=== PATIENT | male | born 1940 | race Caucasian/White ===

== ENCOUNTER 2018-08-09 22:10 | Emergency (ER) | payer BC ==
[2018-08-09] MEDS ORDERED: NS 0.9% 1000 ML* 1,000 ML IV ONE (22:34)
--- NOTE | 2018-08-09 22:41 | ED ---
Syncope/Near Syncope - HPI Summary HPI Summary: Patient is a 77 y/o M presenting to ED via ambulance with complaints of chest pain, syncope, dizziness, and diaphoresis. Patient was at a restaurant tonight when he suddenly began to feel dizzy and sweat profusely at around 0, per family members. He put his head down on the table at this point. No LOC is reported, family members note that patient became confused and had difficulty communicating. EMS was called at this time, while in ambulance patient became more coherent. In the room, he states he also experienced some chest pain upon arrival to the ED which he rated 4/10 but notes that this pain has since resolved. He currently states that he feels, "fine". 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 Patient is on Eliquis, Losartan, two BP meds, one HLD med (cannot recall the names of these meds). PMHx of asthma is also reported. Upholsterer Inside is Dr. Garcia. Patient notes that he had four glasses of wine today , states he typically does not drink. In room, BP is 99/46, pulse 64, o2 92. On triage, pain is denied, nothing is noted to aggravate/alleviate Sx. Home medications and allergies are reviewed. - History Of Current Complaint Chief Complaint: EDDiabeticProb Hx Obtained From: Patient, Family/Administrative Aide Onset/Duration: Sudden Onset, Lasting Minutes, Resolved Timing: Hours - onset 2129 Context: Witnessed Activity At Onset: At Rest - sitting at table Associated Head Trauma: No Aggravating Factor(s): Nothing Alleviating Factor(s): Nothing Associated Signs And Symptoms: Chest Pain, Other - endorses syncope, dizziness, and diaphoresis, confused and had difficulty communicating, denies LOC - Allergies/Home Medications Allergies/Adverse Reactions: Allergies Allergy/AdvReac Type Severity Reaction Status Date / Time MS Codeine [Codeine] Allergy Hives Verified 08/09/18 22:26 PMH/Surg Hx/FS Hx/Imm Hx Endocrine/Hematology History: Denies: Hx Diabetes Cardiovascular History: Reports: Hx Angina, Hx Hypercholesterolemia, Hx Hypertension, Other Cardiovascular Problems/Disorders - cad ascending aorta with valve leakage, stable per pt Denies: Hx Coronary Artery Disease, Hx Myocardial Infarction, Hx Pacemaker/ ICD, Hx Valvular Heart Disease Respiratory History: Reports: Hx Asthma, Hx Sleep Apnea - evaluation for 02/2014 , Other Respiratory Problems/Disorders - hx sob GI History: Reports: Hx Gastroesophageal Reflux Disease History: Reports: Hx Benign Prostatic Hyperplasia - w/o obstruction, Other Problems/Disorders - prostatitis Denies: Hx Renal Disease Sensory History: Denies: Hx Hearing Aid Neurological History: Reports: Other Neuro Impairments/Disorders - 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 Psychiatric History: Denies: Hx Panic Disorder - Surgical History Surgery Procedure, Year, and Place: TONSILS,CYSTS,CATARACTS BILATERAL EYES Infectious Disease History: No Infectious Disease History: Denies: Traveled Outside the [place] in Last 30 Days - Family History Known Family History: Negative: Blood Disorder - Social History Alcohol Use: Occasionally Alcohol Amount: 4 glasses of wine this date Substance Use Type: Reports: None Smoking Status (MU): Never Smoked Tobacco Have You Smoked in the Last Year: No Review of Systems Positive: Skin Diaphoresis Positive: Chest Pain Neurological: Other - POSITIVE - DIZZINESS, CONFUSION, DIFFICULTY COMMUNICATING Positive: Syncope - no LOC All Other Systems Reviewed And Are Negative: Yes Physical Exam - Summary Physical Exam Summary: VITAL SIGNS: Reviewed. GENERAL: Patient is a well-developed and nourished male who is lying comfortable in the stretcher. Patient is not in any acute respiratory distress. HEAD AND FACE: No signs of trauma. No ecchymosis, hematomas or skull depressions. No sinus tenderness. EYES: PERRLA, EOMI x 2, No injected conjunctiva, no nystagmus. EARS: Hearing grossly intact. Ear canals and tympanic membranes are within normal limits. MOUTH: Oropharynx within normal limits. NECK: Supple, trachea is midline, no adenopathy, no JVD, no carotid bruit, no c- spine tenderness, neck with full ROM. CHEST: Symmetric, no tenderness at palpation LUNGS: Clear to auscultation bilaterally. No wheezing or crackles. CVS: Regular rate and rhythm, S1 and S2 present, no murmurs or gallops appreciated. ABDOMEN: Soft, non-tender. Abdominal distention. No rebound no guarding, and no masses palpated. Bowel sounds are normal. EXTREMITIES: FROM in all major joints, no edema, no cyanosis or clubbing. NEURO: Alert and oriented x 3. No acute neurological deficits. Speech is normal and follows commands. SKIN: Dry and warm Triage Information Reviewed: Yes Vital Signs On Initial Exam: Initial Vitals Temp Pulse Resp BP Pulse Ox 97.4 F 68 16 105/56 96 08/09/18 22:14 08/09/18 22:14 08/09/18 22:14 08/09/18 22:14 08/09/18 22:14 Vital Signs Reviewed: Yes Diagnostics - Vital Signs Vital Signs Temp Pulse Resp BP Pulse Ox 08/09/18 22:19 65 16 99/46 95 08/09/18 22:18 65 20 94 08/09/18 22:14 97.4 F 68 16 105/56 96 - Laboratory Result Diagrams: 08/09/18 22:56 08/09/18 22:56 Lab Statement: Any lab studies that have been ordered have been reviewed, and results considered in the medical decision making process. - EKG 2215 Cardiac Rate: NL EKG Rhythm: Sinus Rhythm - rate of 65 bpm Summary of EKG Findings: EKG showed sinus rhythm with rate of 65 BPM, 1st degree AV block, left axis deviation, RBBB. Re-Evaluation - Re-Evaluation First Eval Re-Evaluation Time: 00:31 Change: Improved Comment: Patient states he feels better. He ambulated around ED with no complications. Patient has a loop recorder in place, if any arrhythmias occurred patient would have gotten a call from loop recorder [employer]. Results of labs and tests were discussed, patient is agreeable with discharge to home. Course/Dx Course Of Treatment: Patient is a 77 y/o M presenting to ED via ambulance with complaints of chest pain, syncope, dizziness, and diaphoresis. Patient was at a restaurant tonight when he suddenly began to feel dizzy and sweat profusely at around 2130, per family members. He put his head down on the table at this point. No LOC is reported, family members note that patient became confused and had difficulty communicating. EMS was called at this time, while in ambulance patient became more coherent. In the room, he states he also experienced some chest pain upon arrival to the ED which he rated 4/10 but notes that this pain has since resolved. He currently states that he feels, "fine". PMHx of CVA 2016, states he made a full recovery. Patient is on Eliquis, Losartan, two BP meds, one HLD med (cannot recall the names of these meds). PMHx of asthma is also reported. Upholsterer [facility] is Dr. Garcia. Patient notes that he had four glasses of wine today, states he typically does not drink. In room, BP is 99/46 , pulse 64, o2 92. On physical exam, abdomen is distended. EKG showed sinus rhythm with rate of 65 BPM, 1st degree AV block, left axis deviation, RBBB. Labs showed WBC 8.6, absolute monos 1, INR 1.27, APTT 36.6, carbon dioxide 21, creatinine 1.81, glucose 114, total bilirubin 1.3, trop 0.01. Serum alcohol was 45. During ED course, patient received fluids. After receiving NS, patient states he felt better. Sx could be from dehydration. He ambulated around ED with no complications. Patient has a loop recorder in place, if any arrhythmias occurred patient would have gotten a call from loop recorder [employer]. Results of labs and tests were discussed. Patient is agreeable with discharge to home. - Diagnoses Provider Diagnoses: Dizziness, Syncope Discharge - Sign-Out/Discharge Documenting (check all that apply): Patient Departure - discharge - Discharge Plan Condition: Stable Disposition: HOME Patient Education Materials: Syncope (ED), Dizziness (ED) Referrals: Vidal López MD [Primary Care Provider] - 3 Days Additional Instructions: RETURN TO THE EMERGENCY DEPARTMENT FOR CHANGING OR WORSENING SYMPTOMS. FOLLOW UP WITH PRIMARY CARE PHYSICIAN IN THREE DAYS ON SUNDAY. - Attestation Statements Document Initiated by Scribe: Yes Documenting Scribe: SALLY WILBURN Provider For Whom Steffenibe is Documenting (Include Credential): BUD GRACIA MD Scribe Attestation: SALLY Foy , scribed for BUD GRACIA MD on 08/10/18 at 0051. Status of Scribe Document: Ready
[2018-08-09 23:08] LABS: ABS Basophils 0.1 10^3/ul (0-0.2); ABS Eosinophils 0.1 10^3/ul (0-0.6); ABS Lymphocytes 1.9 10^3/ul (1.0-4.8); ABS Neutrophils 5.5 10^3/ul (1.5-7.7); ABS Nucleated RBC 0 10^3/ul; Eosinophil % 1.5 %; Hematocrit 45 % (42-52); Hemoglobin 15.4 g/dl (14.0-18.0); Lymphocyte % 22.2 %; Mean Corpuscular HGB Conc 34 g/dl (31-36); Mean Corpuscular Hemoglobin 31 pg (27-31); Mean Corpuscular Volume 92 fL (80-94); Mean Platelet Volume 8.4 fL (7.4-10.4); Nucleated Red Blood Cells % 0.1; Platelet Count 184 10^3/ul (150-450); Red Blood Count 4.93 10^6/ul (4.00-5.40); Red Cell Distribution Width 13 % (10.5-15); White Blood Count 8.6 10^3/ul (3.5-10.8)
[2018-08-09 23:21] LABS: INR 1.27 (0.77-1.02)
[2018-08-09 23:27] LABS: EGFR Non-African American 36.3 (>60)
[2018-08-10 01:11] VITALS: BP 105/56
== END 2018-08-10 01:14 | disposition home or self-care (01) ==
LOC: ED 22:10
DX: R42 Dizziness and giddiness (principal); R55 Syncope and collapse; R07.9 Chest pain, unspecified; I10 Essential (primary) hypertension
CPT/HCPCS: 36415; 80053; 80320; 83735; 84484; 85025; 85610; 85730; 93005; 96360; 96361; 99284; G0480

== ENCOUNTER 2022-06-01 14:12 | Inpatient (IN) ==
[2022-06-01] MEDS ORDERED: Famotidine IV 10 MG/ML 2 ml VIAL (20 mg) IV SLOW PU ONE (15:29)
[2022-06-01] MEDS ORDERED: Lactated Ringers 1000 ml BAG 1,000 ML IV ONE ×2 (15:29→20:23)
[2022-06-01] MEDS ORDERED: Ondansetron 4 mg VIAL 2 MG/ML 2 ml VIAL IV ONE (15:29)
[2022-06-01] MEDS ORDERED: fentaNYL 100 mcg/2 ml 50 MCG/ML VIAL IV SLOW PU ONE ×2 (15:29→16:38)
[2022-06-01 15:48] LABS: ABS Monocytes 0.5 10^3/ul (0-0.8); ABS Neutrophils 3.7 10^3/ul (1.5-7.7); Eosinophil % 0.4 %; Hematocrit 43 % (42-52); Lymphocyte % 18.9 %; Mean Corpuscular HGB Conc 32 g/dL (31-36); Mean Corpuscular Hemoglobin 29 pg (27-31); Mean Corpuscular Volume 90 fL (80-94); Mean Platelet Volume 8.3 fL (7.4-10.4); Nucleated Red Blood Cells % 0.1; Platelet Count 199 10^3/uL (150-450); Red Blood Count 4.83 10^6 /uL (4.18-5.48); Red Cell Distribution Width 15 % (10-15); White Blood Count 5.2 10^3/uL (3.5-10.8)
[2022-06-01 15:59] LABS: Activated Partial Thrombo Time 35.7 seconds (26.0-38.0); INR 0.95 (0.89-1.11)
[2022-06-01 16:56] LABS: TSH Ultra Thyroid Stim Horm 2.86 mcIU/mL (0.34-5.60)
[2022-06-01 17:20] LABS: High Sensitivity Troponin 1 Hr 32 pg/mL (<20)
[2022-06-01 17:22] LABS: Albumin 3.2 g/dL (3.2-5.2); Albumin/Globulin Ratio 1.2 (1-3); Calcium 9.2 mg/dL (8.6-10.3); Globulin 2.6 g/dL (2-4); Magnesium 1.8 mg/dL (1.9-2.7); Total Bilirubin 0.7 mg/dL (0.2-1.0); Total Protein 5.8 g/dL (6.4-8.9); eGFR CKD-EPI 27.8 (>60)
[2022-06-01 17:24] LABS: Potassium 4.3 mmol/L (3.5-5.0)
[2022-06-01] MEDS ORDERED: fentaNYL 100 mcg/2 ml 50 MCG/ML VIAL IV SLOW PU PRN (20:58)
[2022-06-01 21:12] LABS: Urine Appearance Cloudy; Urine Bilirubin Negative (Negative); Urine Blood Negative (Negative); Urine Color Yellow; Urine Glucose Negative (Negative); Urine Ketones 1+ (Negative); Urine Nitrite Negative (Negative); Urine Protein Negative (Negative); Urine Specific Gravity 1.013 (1.002-1.030); Urine Urobilinogen Negative (Negative)
[2022-06-01] MEDS: Heparin 5000 UNITS/ML 1 mL VIAL SUBCUT SCH (22:58)
[2022-06-02] MEDS ORDERED: Lactated Ringers 1000 ml BAG 1,000 ML IV ONE (06:19)
[2022-06-02 06:32] LABS: ABS Lymphocytes 1.3 10^3/ul (1.0-4.8); ABS Monocytes 0.5 10^3/ul (0-0.8); Eosinophil % 0.5 %; Hematocrit 39 % (42-52); Hemoglobin 12.9 g/dL (14.0-18.0); Lymphocyte % 26.4 %; Mean Corpuscular HGB Conc 33 g/dL (31-36); Mean Corpuscular Hemoglobin 29 pg (27-31); Mean Corpuscular Volume 89 fL (80-94); Mean Platelet Volume 8.2 fL (7.4-10.4); Nucleated Red Blood Cells % 0.1; Platelet Count 178 10^3/uL (150-450); Red Cell Distribution Width 15 % (10-15); White Blood Count 4.8 10^3/uL (3.5-10.8)
[2022-06-02] MEDS: Heparin 5000 UNITS/ML 1 mL VIAL SUBCUT SCH ×3 (06:55→22:32)
[2022-06-02] MEDS: Mometasone/Formoter 200/5 MDI INH SCH ×2 (06:59→23:59)
[2022-06-02 07:28] LABS: Calcium 8.6 mg/dL (8.6-10.3); eGFR CKD-EPI 34.6 (>60)
[2022-06-02] MEDS: Pantoprazole VIAL 40 MG VIAL IV SCH (10:35)
[2022-06-02] MEDS: Aspirin EC 81 mg TAB.EC (enteric coated) PO SCH (10:38)
[2022-06-03 05:33] LABS: ABS Lymphocytes 0.7 10^3/ul (1.0-4.8); ABS Monocytes 0.4 10^3/ul (0-0.8); ABS Neutrophils 2.3 10^3/ul (1.5-7.7); Eosinophil % 0.9 %; Hematocrit 36 % (42-52); Hemoglobin 11.7 g/dL (14.0-18.0); Lymphocyte % 20.2 %; Mean Corpuscular HGB Conc 33 g/dL (31-36); Mean Corpuscular Hemoglobin 28 pg (27-31); Mean Corpuscular Volume 87 fL (80-94); Mean Platelet Volume 8.1 fL (7.4-10.4); Nucleated Red Blood Cells % 0.1; Platelet Count 170 10^3/uL (150-450); Red Blood Count 4.14 10^6 /uL (4.18-5.48); Red Cell Distribution Width 16 % (10-15); White Blood Count 3.3 10^3/uL (3.5-10.8)
[2022-06-03 05:38] LABS: Potassium 3.4 mmol/L (3.5-5.0)
[2022-06-03 05:44] LABS: eGFR CKD-EPI 40.9 (>60)
[2022-06-03 05:57] LABS: Calcium 8.2 mg/dL (8.6-10.3)
[2022-06-03] MEDS: Heparin 5000 UNITS/ML 1 mL VIAL SUBCUT SCH ×3 (06:10→22:50)
[2022-06-03] MEDS: Mometasone/Formoter 200/5 MDI INH SCH ×2 (07:03→19:46)
[2022-06-03] MEDS ORDERED: Potassium Chlor 20 meq TAB.ER PO ONE (07:59)
[2022-06-03] MEDS: Pantoprazole VIAL 40 MG VIAL IV SCH (08:56)
[2022-06-03] MEDS: Aspirin EC 81 mg TAB.EC (enteric coated) PO SCH (08:56)
[2022-06-03] MEDS: NS 0.9% 1000 ml BAG 1,000 ML IV SCH (09:45)
[2022-06-03] MEDS ORDERED: Ondansetron 4 mg VIAL 2 MG/ML 2 ml VIAL IV PRN (09:49)
[2022-06-04] MEDS: NS 0.9% 1000 ml BAG 1,000 ML IV SCH ×3 (00:50→21:09)
[2022-06-04 05:48] LABS: ABS Lymphocytes 0.8 10^3/ul (1.0-4.8); ABS Monocytes 0.3 10^3/ul (0-0.8); ABS Neutrophils 1.5 10^3/ul (1.5-7.7); Eosinophil % 1.7 %; Hematocrit 33 % (42-52); Lymphocyte % 30.3 %; Mean Corpuscular HGB Conc 33 g/dL (31-36); Mean Corpuscular Hemoglobin 29 pg (27-31); Mean Corpuscular Volume 89 fL (80-94); Mean Platelet Volume 7.7 fL (7.4-10.4); Nucleated Red Blood Cells % 0.1; Platelet Count 142 10^3/uL (150-450); Red Blood Count 3.74 10^6 /uL (4.18-5.48); Red Cell Distribution Width 15 % (10-15); White Blood Count 2.7 10^3/uL (3.5-10.8)
[2022-06-04] MEDS: Heparin 5000 UNITS/ML 1 mL VIAL SUBCUT SCH ×3 (05:52→22:29)
[2022-06-04 06:01] LABS: Calcium 7.9 mg/dL (8.6-10.3); Potassium 3.5 mmol/L (3.5-5.0)
[2022-06-04 06:06] LABS: eGFR CKD-EPI 52.1 (>60)
[2022-06-04] MEDS: Mometasone/Formoter 200/5 MDI INH SCH ×2 (06:51→19:49)
[2022-06-04] MEDS: Aspirin EC 81 mg TAB.EC (enteric coated) PO SCH (10:02)
[2022-06-04] MEDS: Pantoprazole VIAL 40 MG VIAL IV SCH (10:02)
[2022-06-04] MEDS ORDERED: Senna TAB 8.6 mg TAB PO PRN (10:43)
[2022-06-05] MEDS ORDERED: fentaNYL 100 mcg/2 ml 50 MCG/ML VIAL IV SLOW PU ONE (03:22)
[2022-06-05] MEDS: Heparin 5000 UNITS/ML 1 mL VIAL SUBCUT SCH ×3 (05:30→21:25)
[2022-06-05] MEDS: Mometasone/Formoter 200/5 MDI INH SCH ×3 (07:32→19:55)
[2022-06-05] MEDS: NS 0.9% 1000 ml BAG 1,000 ML IV SCH ×2 (07:41→18:15)
[2022-06-05] MEDS: Pantoprazole VIAL 40 MG VIAL IV SCH ×2 (09:23→21:25)
[2022-06-05] MEDS: Aspirin EC 81 mg TAB.EC (enteric coated) PO SCH (09:26)
[2022-06-05] MEDS ORDERED: fentaNYL 100 mcg/2 ml 50 MCG/ML VIAL ONE (14:39)
[2022-06-05] MEDS ORDERED: Midazolam 5 mg/5 ml VIAL 1 mg/ml 5 ml VIAL (5 mg) ONE (14:39)
[2022-06-05] MEDS: Erythromycin Lactobionate IV 250 MG in NS 0.9% 100 ml BAG 100 ML IVPB SCH (18:13)
[2022-06-06] MEDS: Heparin 5000 UNITS/ML 1 mL VIAL SUBCUT SCH ×3 (06:08→22:55)
[2022-06-06] MEDS: NS 0.9% 1000 ml BAG 1,000 ML IV SCH (06:08)
[2022-06-06] MEDS: Aspirin EC 81 mg TAB.EC (enteric coated) PO SCH (08:15)
[2022-06-06] MEDS: Magnesium Hydroxide LIQ 30 ML UDC PO PRN (08:15)
[2022-06-06] MEDS: Pantoprazole VIAL 40 MG VIAL IV SCH ×2 (08:16→22:55)
[2022-06-06] MEDS: Erythromycin Lactobionate IV 250 MG in NS 0.9% 100 ml BAG 100 ML IVPB SCH (08:16)
[2022-06-06 08:36] LABS: ABS Eosinophils 0.1 10^3/ul (0-0.6); ABS Lymphocytes 0.9 10^3/ul (1.0-4.8); ABS Monocytes 0.3 10^3/ul (0-0.8); ABS Neutrophils 2.4 10^3/ul (1.5-7.7); Eosinophil % 3.8 %; Hematocrit 32 % (42-52); Hemoglobin 10.3 g/dL (14.0-18.0); Mean Corpuscular HGB Conc 33 g/dL (31-36); Mean Corpuscular Hemoglobin 29 pg (27-31); Mean Corpuscular Volume 89 fL (80-94); Mean Platelet Volume 7.7 fL (7.4-10.4); Platelet Count 135 10^3/uL (150-450); Red Blood Count 3.55 10^6 /uL (4.18-5.48); Red Cell Distribution Width 15 % (10-15); White Blood Count 3.7 10^3/uL (3.5-10.8)
[2022-06-06 08:53] LABS: Albumin 2.3 g/dL (3.2-5.2); Albumin/Globulin Ratio 1.2 (1-3); Calcium 7.4 mg/dL (8.6-10.3); Globulin 1.9 g/dL (2-4); Magnesium 1.3 mg/dL (1.9-2.7); Potassium 3.6 mmol/L (3.5-5.0); Total Bilirubin 0.5 mg/dL (0.2-1.0); Total Protein 4.2 g/dL (6.4-8.9); eGFR CKD-EPI 73.8 (>60)
[2022-06-06] MEDS: Mometasone/Formoter 200/5 MDI INH SCH ×2 (09:41→19:39)
[2022-06-06] MEDS ORDERED: Magnesium Sulf 4 GM/100 ML IV 4,000 MG/100 ML BAG IVPB ONE (13:30)
[2022-06-07] MEDS: Heparin 5000 UNITS/ML 1 mL VIAL SUBCUT SCH ×4 (06:39→22:34)
[2022-06-07 06:55] LABS: ABS Eosinophils 0.1 10^3/ul (0-0.6); ABS Monocytes 0.3 10^3/ul (0-0.8); ABS Neutrophils 1.5 10^3/ul (1.5-7.7); Eosinophil % 4.7 %; Hematocrit 31 % (42-52); Hemoglobin 10.3 g/dL (14.0-18.0); Mean Corpuscular HGB Conc 33 g/dL (31-36); Mean Corpuscular Hemoglobin 29 pg (27-31); Mean Corpuscular Volume 88 fL (80-94); Mean Platelet Volume 7.8 fL (7.4-10.4); Nucleated Red Blood Cells % 0.1; Platelet Count 134 10^3/uL (150-450); Red Blood Count 3.54 10^6 /uL (4.18-5.48); Red Cell Distribution Width 15 % (10-15); White Blood Count 2.9 10^3/uL (3.5-10.8)
[2022-06-07 07:08] LABS: Calcium 7.8 mg/dL (8.6-10.3); Magnesium 2.2 mg/dL (1.9-2.7); Potassium 3.6 mmol/L (3.5-5.0)
[2022-06-07 07:13] LABS: eGFR CKD-EPI 71.2 (>60)
[2022-06-07] MEDS: Mometasone/Formoter 200/5 MDI INH SCH ×2 (08:01→19:12)
[2022-06-07] MEDS: Polyethylene Glycol 3350 17 GM PACKET PO PRN (08:18)
[2022-06-07] MEDS: Aspirin EC 81 mg TAB.EC (enteric coated) PO SCH (09:09)
[2022-06-07] MEDS: Pantoprazole VIAL 40 MG VIAL IV SCH ×2 (09:12→20:51)
[2022-06-07] MEDS ORDERED: fentaNYL 100 mcg/2 ml 50 MCG/ML VIAL ONE (14:56)
[2022-06-07] MEDS ORDERED: Midazolam 5 mg/5 ml VIAL 1 mg/ml 5 ml VIAL (5 mg) ONE (14:56)
[2022-06-07] MEDS: Magnesium Hydroxide LIQ 30 ML UDC PO PRN ×2 (17:16→20:51)
[2022-06-08] MEDS: Heparin 5000 UNITS/ML 1 mL VIAL SUBCUT SCH ×3 (05:34→21:48)
[2022-06-08 06:47] LABS: Calcium 7.6 mg/dL (8.6-10.3); Magnesium 2.4 mg/dL (1.9-2.7); Potassium 3.6 mmol/L (3.5-5.0); eGFR CKD-EPI 80.4 (>60)
[2022-06-08] MEDS: Mometasone/Formoter 200/5 MDI INH SCH ×2 (08:09→20:02)
[2022-06-08] MEDS: Pantoprazole VIAL 40 MG VIAL IV SCH ×2 (08:32→21:48)
[2022-06-08] MEDS: Aspirin EC 81 mg TAB.EC (enteric coated) PO SCH (08:36)
[2022-06-08] MEDS: Magnesium Hydroxide LIQ 30 ML UDC PO PRN (08:40)
[2022-06-08] MEDS: Polyethylene Glycol 3350 17 GM PACKET PO PRN (08:40)
[2022-06-08 08:47] LABS: ABS Eosinophils 0.1 10^3/ul (0-0.6); ABS Lymphocytes 0.9 10^3/ul (1.0-4.8); ABS Monocytes 0.3 10^3/ul (0-0.8); ABS Neutrophils 2.4 10^3/ul (1.5-7.7); Eosinophil % 2.9 %; Hematocrit 31 % (42-52); Hemoglobin 10.2 g/dL (14.0-18.0); Lymphocyte % 23.9 %; Mean Corpuscular HGB Conc 33 g/dL (31-36); Mean Corpuscular Hemoglobin 28 pg (27-31); Mean Corpuscular Volume 87 fL (80-94); Mean Platelet Volume 7.7 fL (7.4-10.4); Nucleated Red Blood Cells % 0.1; Platelet Count 138 10^3/uL (150-450); Red Cell Distribution Width 15 % (10-15); White Blood Count 3.7 10^3/uL (3.5-10.8)
[2022-06-08] MEDS: Magnesium Hydroxide LIQ 30 ML UDC PO SCH (21:48)
[2022-06-09] MEDS: Heparin 5000 UNITS/ML 1 mL VIAL SUBCUT SCH (06:20)
[2022-06-09] MEDS: Mometasone/Formoter 200/5 MDI INH SCH (06:46)
[2022-06-09] MEDS: Magnesium Hydroxide LIQ 30 ML UDC PO SCH (09:57)
[2022-06-09] MEDS: Aspirin EC 81 mg TAB.EC (enteric coated) PO SCH (09:57)
[2022-06-09] MEDS: Pantoprazole VIAL 40 MG VIAL IV SCH (09:58)
[2022-06-09 10:56] VITALS: BP 124/75
[2022-06-09 12:12] LABS: Rapid COVID-19 Molecular Undetected (Undetected)
== END 2022-06-09 13:00 | DRG 380 ==
LOC: ED 14:12 → EDHOLD 14:12 → SSU 06-02 00:54 → SUATTDRO 06-02 13:47
PROVIDERS: ADMIT Student in an Organized Health Care Education/Training Program; ATTEND Internal Medicine